=== PATIENT | female | born 1990 | race Hispanic/Latino ===

== ENCOUNTER 2021-08-07 20:27 | Observation (INO) | payer MEDICAID ==
[~2021-08-07] VITALS: Ht 170.2 cm; Wt 108.4 kg
[2021-08-07 20:32] VITALS: BP 139/78
[2021-08-07 21:25] LABS: APPEARANCE,URINE Cloudy (CLEAR)
[2021-08-07 21:26] LABS: BILIRUBIN,URINE Negative (NEGATIVE); COLOR,URINE Yellow (YELLOW); GLUCOSE, URINE (UA) Negative (NEGATIVE); KETONES,URINE Negative (NEGATIVE); LEUKOCYTE ESTERASE ,URINE Large (NEGATIVE); NITRATE,URINE Negative (NEGATIVE); OCCULT BLOOD,URINE Trace (NEGATIVE); PH,URINE 6.5 (5.0-8.0); PROTEIN,URINE Negative (NEGATIVE); UROBILINOGEN,URINE 0.2 mg/dL (0.2-1.0)
[2021-08-07 21:33] LABS: AMPHET/METH SCREEN,URINE NEGATIVE (NEGATIVE); BARBITURATE SCREEN, URINE NEGATIVE (NEGATIVE); BENZODIAZEPINES SCREEN,URINE NEGATIVE (NEGATIVE); CANNABINOID SCREEN,URINE NEGATIVE (NEGATIVE); COCAINE SCREEN,URINE NEGATIVE (NEGATIVE); OPIATE SCREEN,URINE NEGATIVE (NEGATIVE); PHENCYCLIDINE SCREEN,URINE NEGATIVE (NEGATIVE)
[2021-08-07 21:38] LABS: SQUAMOUS EPITHELIAL CELL,UR TNTC /HPF (0-2)
[2021-08-07 21:40] LABS: BACTERIA,URINE Moderate /HPF (None Seen); WBC,URINE 26-50 /HPF (0-1)
[2021-08-07 21:41] LABS: MUCUS,URINE Few LPF (None Seen)
[2021-08-07] MEDS ORDERED: CEFTRIAXONE 1G VIAL IVP ONE (22:00)
[2021-08-07] MEDS ORDERED: TERBUTALINE SULFATE VIAL 1MG/ML SQ SCH (22:00)
[2021-08-07] MEDS ORDERED: LACTATED RINGERS 1000ML 1,000 ML IV SCH (22:00)
[2021-08-07] MEDS ORDERED: CEFTRIAXONE 1G VIAL ONE (22:19)
[2021-08-07] MEDS ORDERED: TERBUTALINE SULFATE VIAL 1MG/ML SQ ONE (22:19)
== END 2021-08-08 00:25 | disposition home or self-care (01) ==
LOC: EDH 20:27 → LDH 20:28
PROVIDERS: ADMIT Obstetrics & Gynecology; ATTEND Obstetrics & Gynecology
DX: O62.9 Abnormality of forces of labor, unspecified (principal); O99.891 Other specified diseases and conditions complicating pregnancy; M54.5 Low back pain; R10.2 Pelvic and perineal pain; O26.893 Other specified pregnancy related conditions, third trimester; N89.8 Other specified noninflammatory disorders of vagina; Z3A.33 33 weeks gestation of pregnancy; Z79.899 Other long term (current) drug therapy
CPT/HCPCS: 59025; 80305; 81001; 87088; 96361; 96372; 96374; G0378 ×3; G0379; J0696; J3105; J7120; 96360

== ENCOUNTER 2021-08-24 22:39 | Inpatient (IN) | payer MEDICAID ==
[~2021-08-24] VITALS: Ht 170.2 cm; Wt 108.4 kg
[2021-08-24 22:40] VITALS: BP 127/66
[2021-08-24] MEDS: LACTATED RINGERS 1000ML 1,000 ML IV PRN (23:15)
[2021-08-24 23:27] LABS: APPEARANCE,URINE Clear (CLEAR); BILIRUBIN,URINE Negative (NEGATIVE); COLOR,URINE Yellow (YELLOW); GLUCOSE, URINE (UA) Negative (NEGATIVE); KETONES,URINE Negative (NEGATIVE); LEUKOCYTE ESTERASE ,URINE Trace (NEGATIVE); NITRATE,URINE Negative (NEGATIVE); OCCULT BLOOD,URINE Large (NEGATIVE); PROTEIN,URINE Negative (NEGATIVE); UROBILINOGEN,URINE 0.2 mg/dL (0.2-1.0)
[2021-08-24 23:33] LABS: AMPHET/METH SCREEN,URINE NEGATIVE (NEGATIVE); BARBITURATE SCREEN, URINE NEGATIVE (NEGATIVE); BENZODIAZEPINES SCREEN,URINE NEGATIVE (NEGATIVE); CANNABINOID SCREEN,URINE NEGATIVE (NEGATIVE); COCAINE SCREEN,URINE NEGATIVE (NEGATIVE); OPIATE SCREEN,URINE NEGATIVE (NEGATIVE); PHENCYCLIDINE SCREEN,URINE NEGATIVE (NEGATIVE)
[2021-08-24 23:47] LABS: HEMATOCRIT 32.9 % (36-48); MEAN CORPUSCULAR HEMOGLOBIN 30.1 pg (27.0-33.0); MEAN CORPUSCULAR HGB CONC 34.3 g/dL (32.0-36.0); MEAN CORPUSCULAR VOLUME 87.7 fL (79-99); RED BLOOD CELL COUNT(AUTO) 3.75 MIL/uL (4.00-5.50); RED CELL DISTRIBUTION WIDTH 13.2 % (11.0-15.5); WHITE BLOOD COUNT (AUTO) 7.8 K/uL (4.8-10.8)
[2021-08-24 23:59] LABS: BACTERIA,URINE Few /HPF (None Seen)
[2021-08-25] MEDS: LACTATED RINGERS 1000ML 1,000 ML IV PRN ×3 (02:08→11:37)
[2021-08-25] MEDS ORDERED: PREN1TAB80 PO (02:12)
[2021-08-25 06:40] LABS: RAPID PLASMA REAGIN NONREACTIVE (NONREACTIVE)
[2021-08-26 19:09] LABS: HEPATITIS Bs ANTIGEN SCREEN P Negative (Negative)
== END 2021-08-25 11:55 | disposition home or self-care (01) | DRG 566 ==
LOC: EDH 22:39 → OBSVTOIN 22:53 → LDH 22:53
PROVIDERS: ADMIT Obstetrics & Gynecology; ATTEND Obstetrics & Gynecology
DX: O46.93 Antepartum hemorrhage, unspecified, third trimester (principal); Z3A.37 37 weeks gestation of pregnancy
CPT/HCPCS: 36415; 76805; 76819; 80305; 81001; 85027; 86592; 86701; 86850; 86900; 86901; 87340; 87390; 96360; 96361; G0378; J7120

== ENCOUNTER 2021-08-28 11:24 | Inpatient (IN) | payer MEDICAID ==
[~2021-08-28] VITALS: Ht 170.2 cm; Wt 106.1 kg
[~2021-08-28 11:24] MED LIST: PREN1TAB80 PO
[2021-08-28] MEDS ORDERED: LACTATED RINGERS 1000ML 1,000 ML IV PRN ×2 (12:00→13:30)
[2021-08-28] MEDS ORDERED: DIPHENHYDRAMINE HCL 25 MG CAPSULE PO PRN ×2 (12:30→16:00)
[2021-08-28 12:51] LABS: HEMATOCRIT 33.9 % (36-48); MEAN CORPUSCULAR HEMOGLOBIN 30.8 pg (27.0-33.0); MEAN CORPUSCULAR HGB CONC 34.5 g/dL (32.0-36.0); MEAN CORPUSCULAR VOLUME 89.2 fL (79-99); RED BLOOD CELL COUNT(AUTO) 3.8 MIL/uL (4.00-5.50); RED CELL DISTRIBUTION WIDTH 13.3 % (11.0-15.5); WHITE BLOOD COUNT (AUTO) 8.8 K/uL (4.8-10.8)
[2021-08-28 12:53] LABS: APPEARANCE,URINE Cloudy (CLEAR); BILIRUBIN,URINE Negative (NEGATIVE); COLOR,URINE Orange (YELLOW); GLUCOSE, URINE (UA) Negative (NEGATIVE); KETONES,URINE Negative (NEGATIVE); LEUKOCYTE ESTERASE ,URINE Moderate (NEGATIVE); NITRATE,URINE Negative (NEGATIVE); OCCULT BLOOD,URINE Large (NEGATIVE); PH,URINE 5.5 (5.0-8.0); PROTEIN,URINE POS 1+ mg/dL (NEGATIVE)
[2021-08-28 12:59] LABS: CREATININE 0.5 mg/dL (0.5-1.5); POTASSIUM 3.5 mmol/L (3.5-5.1)
[2021-08-28 13:00] LABS: INR 0.94 (0.85-1.15); PROTHROMBIN TIME 10.3 SEC (9.6-11.6)
[2021-08-28 13:02] LABS: PARTIAL THROMBOPLASTIN TIME 25.4 SEC (26.3-35.5)
[2021-08-28 13:04] LABS: ALBUMIN 2.8 g/dL (3.5-5.0); BILIRUBIN,TOTAL 0.2 mg/dL (0.2-1.0); TOTAL PROTEIN, SERUM 6.5 g/dL (6.0-8.3)
[2021-08-28] MEDS ORDERED: EPHEDRINE SULFATE 50 MG/ML AMPULE IVP PRN (13:30)
[2021-08-28] MEDS ORDERED: PROMETHAZINE HCL 25 MG/ML 1ML AMPULE IM PRN (13:30)
[2021-08-28] MEDS ORDERED: OXYTOCIN-LR 20 UNITS/1000 ML 1,000 ML IV SCH (13:30)
[2021-08-28] MEDS ORDERED: ROPIVACAINE 0.2% 100ML VIAL 100 ML EP SCH (13:30)
[2021-08-28] MEDS ORDERED: NALOXONE HCL 0.4 MG/1 ML ML IV PRN (13:30)
[2021-08-28] MEDS ORDERED: MEPERIDINE-PF 50 MG/ML SYG IVP PRN (13:30)
[2021-08-28] MEDS ORDERED: LACTATED RINGERS 500 ML 500 ML IV PRN (13:30)
[2021-08-28 13:32] LABS: BACTERIA,URINE Moderate /HPF (None Seen)
[2021-08-28 13:41] VITALS: BP 111/56
[2021-08-29] MEDS ORDERED: LIDOCAINE HCL 1% 20 ML VIAL ONE (02:08)
[2021-08-29] MEDS ORDERED: METHYLERGONOVINE MALEATE 0.2 MG/1 ML ML ONE (02:48)
[2021-08-29] MEDS ORDERED: WITCH HAZEL 1 PAD TP PRN (03:30)
[2021-08-29] MEDS ORDERED: DIPH,PERTUSS(ACELL),TET VAC/PF 0.5 ML VIAL IM PRN (03:30)
[2021-08-29] MEDS ORDERED: BENZOCAINE/LANOLIN/ALOE VERA 60 ML AEROSOL TP PRN (03:30)
[2021-08-29] MEDS ORDERED: ACETAMINOPHEN WITH CODEINE 1 TAB TAB PO PRN (03:30)
[2021-08-29] MEDS ORDERED: LANOLIN 30GM OINTMENT TP PRN (03:30)
[2021-08-29] MEDS ORDERED: ACETAMINOPHEN 325 MG TAB PO PRN (03:30)
[2021-08-29] MEDS ORDERED: MEASLES/MUMPS/RUBELLA VACCINE, LIVE 0.5 ML/VIAL SQ PRN (03:30)
[2021-08-29] MEDS ORDERED: OXYTOCIN-LR 20 UNITS/1000 ML 1,000 ML IV SCH (04:00)
[2021-08-29 05:30] VITALS: BP 94/51
[2021-08-29 07:44] VITALS: BP 132/71
[2021-08-29 08:15] LABS: HEPATITIS Bs ANTIGEN SCREEN P Negative (Negative)
[2021-08-29] MEDS: DOCUSATE SODIUM 100 MG CAP PO SCH ×2 (09:47→21:52)
[2021-08-29 10:58] VITALS: BP 132/79
[2021-08-29 16:31] VITALS: BP 110/70
[2021-08-29 19:57] VITALS: BP 104/54
[2021-08-29 22:55] VITALS: BP 107/67
[2021-08-30] MEDS: IBUPROFEN 600 MG TABLET PO PRN ×2 (02:42→08:08)
[2021-08-30 03:01] VITALS: BP 133/71
[2021-08-30] MEDS ORDERED: IBUP-2077 PO (03:35)
[2021-08-30] MEDS ORDERED: DOCU-116 PO (03:38)
[2021-08-30 07:08] VITALS: BP 91/61
[2021-08-30] MEDS: DOCUSATE SODIUM 100 MG CAP PO SCH (08:08)
[2021-08-30 11:25] VITALS: BP 118/65
== END 2021-08-30 12:45 | disposition home or self-care (01) | DRG 560 ==
LOC: OBSVTOIN 11:24 → LDH 11:24 → WSH 08-29 05:16
PROVIDERS: ADMIT Obstetrics & Gynecology; ATTEND Obstetrics & Gynecology
PROC: 10E0XZZ Delivery of Products of Conception, External Approach (ICD-10-PCS; principal; 2021-08-29)
PROC: 3E0134Z Introduction of Serum, Toxoid and Vaccine into Subcutaneous Tissue, Percutaneous Approach (ICD-10-PCS; 2021-08-29)
DX: O26.62 Liver and biliary tract disorders in childbirth (principal); K83.1 Obstruction of bile duct; Z23 Encounter for immunization; Z37.0 Single live birth; Z3A.37 37 weeks gestation of pregnancy
CPT/HCPCS: 36415; 80053; 81001; 84550; 85027; 85384; 85610; 85730; 86592; 86850; 86900; 86901; 87088; 87340; 90707; G0378; J2175; J2210; J2550; J2590; Q0163

== ENCOUNTER 2023-12-14 06:05 | Inpatient (IN) | payer MEDICAID, OTHER ==
[~2023-12-14] VITALS: Ht 175.3 cm; Wt 90.7 kg
[~2023-12-14 06:05] MED LIST changes: +DOCU-116 PO; +IBUP-2077 PO
[2023-12-14 06:28] LABS: BASOPHILS # (AUTO) 0.01 K/uL (0.00-0.20); BASOPHILS % (AUTO) 0.3 % (0.0-5.0); EOSINOPHILS # (AUTO) 0.02 K/uL (0.00-0.70); EOSINOPHILS % (AUTO) 0.5 % (0.0-8.0); HEMATOCRIT 38.8 % (36-48); IMMATURE GRANULOCYTE ABSOLUTE 0.01 K/uL (0-1); LYMPHOCYTES # (AUTO) 1.8 K/uL (1.0-4.8); LYMPHOCYTES % (AUTO) 47.3 % (21.0-51.0); MEAN CORPUSCULAR HEMOGLOBIN 30.4 pg (27.0-33.0); MEAN CORPUSCULAR HGB CONC 35.1 g/dL (32.0-36.0); MEAN CORPUSCULAR VOLUME 86.6 fL (79-99); MONOCYTES # (AUTO) 0.2 K/uL (0.1-1.0); MONOCYTES % (AUTO) 5.9 % (3.0-13.0); NEUTROPHILS # (AUTO) 1.7 K/uL (1.8-7.7); NEUTROPHILS % (AUTO) 45.7 % (40.0-77.0); PLATELET COUNT (AUTO) 226 K/uL (130-400); RED BLOOD CELL COUNT(AUTO) 4.48 MIL/uL (4.00-5.50); RED CELL DISTRIBUTION WIDTH 12.2 % (11.0-15.5); WHITE BLOOD COUNT (AUTO) 3.7 K/uL (4.8-10.8)
[2023-12-14] MEDS ORDERED: ONDANSETRON 4MG INJ IVP ONE (06:30)
[2023-12-14] MEDS: MORPHINE 2 MG SYG IVP ONE ×2 (06:32→06:56)
[2023-12-14 06:52] LABS: ALBUMIN 3.6 g/dL (3.5-5.0); CREATININE 0.7 mg/dL (0.5-1.5); POTASSIUM 3.4 mmol/L (3.5-5.1); TOTAL PROTEIN, SERUM 7.1 g/dL (6.0-8.3)
[2023-12-14] MEDS ORDERED: ZOSYN 3.375GM +NS 50ML IV ONE (07:00)
[2023-12-14 07:45] LABS: APPEARANCE,URINE CLEAR (CLEAR); BILIRUBIN,URINE NEGATIVE (NEGATIVE); COLOR,URINE LIGHT-YELLOW (YELLOW); GLUCOSE, URINE (UA) NEGATIVE (NEGATIVE); KETONES,URINE NEGATIVE (NEGATIVE); LEUKOCYTE ESTERASE ,URINE NEGATIVE Leu/uL (NEGATIVE); NITRATE,URINE NEGATIVE (NEGATIVE); OCCULT BLOOD,URINE LARGE (NEGATIVE); PROTEIN,URINE NEGATIVE (NEGATIVE); UROBILINOGEN,URINE 0.2 mg/dL (0.2-1.0)
[2023-12-14 07:48] LABS: ADD UA MICROSCOPIC YES
[2023-12-14 07:49] LABS: BACTERIA,URINE RARE /HPF (None Seen); SQUAMOUS EPITHELIAL CELL,UR RARE /HPF (0-2); WBC,URINE 0-1 /HPF (0-1)
[2023-12-14] MEDS ORDERED: MORPHINE 2 MG SYG IVP PRN (08:30)
[2023-12-14 08:54] LABS: INR 0.94 (0.85-1.15); PROTHROMBIN TIME 10.9 SEC (9.6-11.6)
[2023-12-14 08:55] LABS: PARTIAL THROMBOPLASTIN TIME 27.1 SEC (26.3-35.5)
[2023-12-14] MEDS ORDERED: FAMOTIDINE 20MG VIAL IV SCH (09:00)
[2023-12-14 13:17] VITALS: BP 126/79; PULSE 88; RESP 16; O2SAT 99
[2023-12-14] MEDS ORDERED: 0.9%NACL 50ML IV SCH (14:30)
[2023-12-14] MEDS ORDERED: ZOSYN 3.375GM +NS 50ML IVPB SCH (14:30)
[2023-12-14 22:14] LABS: HEPATITIS A IGM ANTIBODY Non-Reactive (Nonreactive); HEPATITIS B CORE IGM ANTIBODY Non-Reactive (Negative); HEPATITIS B SURFACE ANTIGEN Non-Reactive (Nonreactive); HEPATITIS C ANTIBODY Non-Reactive (Nonreactive)
== END 2023-12-14 14:07 | disposition left against medical advice (07) | DRG 446 ==
LOC: EDH 06:05 → EDHIP 06:06
PROVIDERS: ADMIT Internal Medicine; ATTEND Internal Medicine
DX: K80.70 Calculus of gallbladder and bile duct without cholecystitis without obstruction (principal); K82.8 Other specified diseases of gallbladder; E66.9 Obesity, unspecified; Z53.29 Procedure and treatment not carried out because of patient's decision for other reasons; Z82.49 Family history of ischemic heart disease and other diseases of the circulatory system; Z68.29 Body mass index [BMI] 29.0-29.9, adult
CPT/HCPCS: 36415; 71045; 76705; 80053; 80074; 81001; 83690; 84145; 84484; 84703; 85025; 85610; 85730; 86140; 93005; 96365; 96375; G0378; J2270; J2405; J2543; J3490